=== PATIENT | male | born 1995 | race African-American/Black ===

== ENCOUNTER 2016-09-07 19:50 | Emergency (ER) | payer BC | END 2016-09-07 19:59 | disposition home or self-care (01) | LOC: ER 19:50 | PROC: 0HQ1XZZ Repair Face Skin, External Approach (ICD-10-PCS; principal; 2016-09-07) | DX: S01.81XA Laceration without foreign body of other part of head, initial encounter (principal); W21.05XA Struck by basketball, initial encounter | CPT/HCPCS: 99282 ==